=== PATIENT | female | born 1960 | race Caucasian/White ===

== ENCOUNTER → 2018-03-04 | Outpatient (CLI) | payer BC | LOC: M WUC 15:58 | DX: M16.12 Unilateral primary osteoarthritis, left hip (principal); C50.919 Malignant neoplasm of unspecified site of unspecified female breast | CPT/HCPCS: 73502 ==

== ENCOUNTER → 2018-05-11 | Outpatient (REF) | payer BC ==
[2018-05-11 12:44] LABS: OSMOLALITY SERUM 299 MOSM/KG (275-295)
== END ==
LOC: M SFHCPLAZ 10:26
DX: K52.9 Noninfective gastroenteritis and colitis, unspecified (principal)
CPT/HCPCS: 83930

== ENCOUNTER → 2018-05-16 | Outpatient (REF) | payer BC | LOC: M LAB REF 15:09 | DX: K52.9 Noninfective gastroenteritis and colitis, unspecified (principal) | CPT/HCPCS: 87507 ==

== ENCOUNTER → 2018-06-04 | Outpatient (REF) | payer BC ==
[2018-06-04 13:39] LABS: FERRITIN 21 NG/ML (8-252); IRON (FE) 59 UG/DL (50-170); PERCENT SATURATION 15.9 % (13.2-45.0); TOTAL IRON BINDING CAPACITY 371 UG/DL (250-450)
== END ==
LOC: M LAB REF 13:01
DX: C79.51 Secondary malignant neoplasm of bone (principal); C50.911 Malignant neoplasm of unspecified site of right female breast; Z79.818 Long term (current) use of other agents affecting estrogen receptors and estrogen levels

== ENCOUNTER 2019-07-28 08:59 | Emergency (ER) | payer BC ==
[~2019-07-28] VITALS: Ht 157.5 cm; Wt 74.1 kg
[~2019-07-28 08:59] MED LIST: ASPI81TA26 PO; CALC600T60 PO; DULO1CAP5 PO; ENAL2.5T PO; FIBE625T PO; MELA3TAB49 PO; MULTCAP PO; QC F0.52 PO; SIMV20TA2 PO; SYNT75TA PO; TRAZ-252 PO
[2019-07-28] MEDS ORDERED: FULV250S IM (09:19)
[2019-07-28] MEDS ORDERED: XGEVINJ SC (09:20)
[2019-07-28] MEDS ORDERED: ISOVUE-370 76% 100ML VIAL (Q9967) As Ordered ONE (09:38)
[2019-07-28 10:12] LABS: CK-MB VALUE MASS 1.7 NG/ML (<3.6); CPK CREATINE PHOSPHOKINASE 122 U/L (26-192); LIPASE 118 U/L (73-393); MB/CK RELATIVE INDEX 1.39 (< OR =4); TROPONIN I < 0.02 NG/ML (< 0.10)
--- NOTE | 2019-07-28 10:58 | ECGEPIP ---
[facility] - ED Test Date: 2019-07-28 Pat Name: HEMALATHA BECKETT Department: Room: - Gender: Female Physician Coder: : [id number] Requested By: RITA Martinez Order Number: [id number] Reading MD: Hemalatha Reese Measurements Intervals [facility] Rate: 88 P: 39 NM: 152 QRS: -25 QRSD: 89 T: 33 QT: 367 QTc: 445 Interpretive Statements SINUS RHYTHM BORDERLINE LEFT AXIS DEVIATION NO PRIOR Electronically Signed on 07-28-2019 10:58:12 EDT by Hemalatha Reese
--- NOTE | 2019-07-28 11:27 | REP ---
CT ABDOMEN AND PELVIS WITH IV CONTRAST: TECHNIQUE: Axial contrast enhanced images from the lung bases to the pubic symphysis using 100 mL Isovue 370 intravenous contrast material with multiplanar reformations. Visualized lung bases demonstrate no infiltrate. There is a large hiatal hernia. There is a right breast implant. The liver, spleen, adrenals, pancreas and kidneys appear unremarkable. There is no hydronephrosis. There is no abdominal aortic aneurysm. There is no adenopathy. There is no free air or free fluid. No definite bowel wall thickening is seen. There is a left hip prosthesis which causes adjacent beam hardening artifact limiting evaluation of inferior pelvic structures. Urinary bladder is not well visualized. There appear to be old pelvic fractures on the left. Specifically, there appear to be old fractures of the left pubic rami, the right pubis, left acetabulum and possibly the medial superior left iliac bone. There are degenerative changes of the spine. IMPRESSION: No free air or free fluid. No definite acute abnormality. Large hiatal hernia. Electronically Signed by Quan Bailey MD 07/29/2019 09:17 A
[2019-07-28] MEDS ORDERED: KETO10TAB PO (12:37)
[2019-07-28] MEDS ORDERED: KETOROLAC 30 MG/ML VIAL (J1885) IV ONE (12:45)
[2019-07-28 12:46] VITALS: BP 149/78
== END 2019-07-28 13:50 | disposition home or self-care (01) ==
LOC: M ED 08:59
DX: R10.9 Unspecified abdominal pain (principal); K59.00 Constipation, unspecified; E78.49 Other hyperlipidemia; E03.9 Hypothyroidism, unspecified; K21.9 Gastro-esophageal reflux disease without esophagitis; F32.9 Major depressive disorder, single episode, unspecified; Z88.2 Allergy status to sulfonamides; Z88.0 Allergy status to penicillin; Z88.8 Allergy status to other drugs, medicaments and biological substances
CPT/HCPCS: 74177; 81001; 82550; 82553; 83690; 84484; 93005; 96374; 99284; J1885; Q9967

== ENCOUNTER → 2019-08-01 | Outpatient (CLI) | payer BC ==
[~2019-08-01] MED LIST changes: +FULV250S IM; +KETO10TAB PO; +XGEVINJ SC
--- NOTE | 2019-08-02 08:20 | REP ---
Clinical: Abdominal and epigastric pain. Technique: Real time boone scale ultrasound examination using curved array transducer. Findings: Liver and pancreas are normal in contour, size, echogenicity without focal hepatic or pancreatic lesion identified. The gallbladder is normal and without gallstones, wall thickening, or pericholecystic fluid. No biliary ductal dilatation is appreciated and the common bile duct measures 3.7 mm diameter. Right kidney is normal in reniform shape without hydronephrosis and measures 8.0 x 3.4 x 3.0 cm. No ascites in the visualized right upper quadrant. Impression: Normal limited abdominal ultrasound. Electronically Signed by Naveed Kim MD 08/02/2019 08:11 A
== END ==
LOC: M RAD 07:32
PROVIDERS: ATTEND Family Medicine
DX: R10.13 Epigastric pain (principal)

== ENCOUNTER 2021-07-19 05:00 | Inpatient (IN) | payer BC ==
[~2021-07-19] VITALS: Ht 157.5 cm; Wt 70.0 kg
[~2021-07-19 05:00] MED LIST changes: +BACI1CAP4 PO; +COVI100V IM; +ENAL1TAB46 PO; -ENAL2.5T PO; +MULT-90 PO; +OMEP-221 PO; -SIMV20TA2 PO; +SIMV20TA22 PO; +VITA1CAP25 PO
[2021-07-19 06:30] LABS: BASO % 0.2 % (0.0-1.0); EOS % 0.5 % (0.0-3.0); HEMATOCRIT 43.1 % (36.0-47.0); HEMOGLOBIN 13.8 g/dl (12.0-15.5); LYMPH # 1.7 10^3/uL (1.5-5.0); LYMPH % 20.1 % (24.0-44.0); MEAN CORPUSCULAR HEMOGLOBIN 24.5 pg (27.0-33.0); MEAN CORPUSCULAR VOLUME 76.4 fl (80.0-96.0); MONO # 0.8 10^3/uL (0.0-0.8); MONO % 9.5 % (2.0-8.0); NEUTROPHILS # 5.7 10^3/uL (1.5-8.5); NEUTROPHILS % 69.2 % (36.0-66.0); PLATELET COUNT, AUTOMATED 265 10^3/uL (150-450); RED BLOOD COUNT 5.64 10^6/uL (4.00-5.40); WHITE BLOOD COUNT 8.3 10^3/uL (4.0-10.0)
[2021-07-19] MEDS ORDERED: FAMOTIDINE IV BAG 20 MG in IV 1 EA IV ONE (06:40)
[2021-07-19] MEDS ORDERED: GI COCKTAIL 50ML BTL(HYOSCYAMINE/MAALOX/LIDOCAINE VISCOUS)(1:3:1) PO ONE (06:40)
[2021-07-19] MEDS ORDERED: PANTOPRAZOLE 40MG VIAL (C9113 PER 1) IV ONE (06:40)
[2021-07-19] MEDS ORDERED: ONDANSETRON 4MG/2ML VIAL IV ONE (06:40)
[2021-07-19] MEDS ORDERED: NS 1,000 ML IV ONE (06:40)
[2021-07-19] MEDS ORDERED: MORPHINE 4 MG/ML 1ML VIAL/SYRINGE (J2270) IV ONE ×2 (06:40→09:05)
[2021-07-19] MEDS ORDERED: SUCRALFATE 1 GM TAB PO ONE (06:40)
[2021-07-19] MEDS ORDERED: SUCR1TAB56 PO (06:49)
[2021-07-19 07:20] LABS: ALT/SGPT 29 U/L (12-78); BILIRUBIN,DIRECT < 0.1 MG/DL (0.0-0.2); BILIRUBIN,TOTAL 0.5 MG/DL (0.2-1.0); BLOOD UREA NITROGEN 22 MG/DL (7-18); CALCIUM LEVEL 10.5 MG/DL (8.8-10.2); CARBON DIOXIDE LEVEL 32 MEQ/L (21-32); CHLORIDE LEVEL 101 MEQ/L (98-107); CREATININE FOR GFR 1.23 MG/DL (0.55-1.30); FERRITIN 310 NG/ML (8-252); GLOMERULAR FILTRATION RATE 47.1 (>45); GLUCOSE, FASTING 125 MG/DL (70-100); IRON (FE) 54 UG/DL (50-170); LIPASE 249 U/L (73-393); PERCENT SATURATION 15.9 % (13.2-45.0); POTASSIUM SERUM 3.8 MEQ/L (3.5-5.1); SODIUM LEVEL 143 MEQ/L (136-145); TOTAL IRON BINDING CAPACITY 340 UG/DL (250-450); TOTAL PROTEIN 7.6 GM/DL (6.4-8.2)
[2021-07-19] MEDS: GASTROGRAFIN SOLUTION 30ML PO SCH ×2 (07:49→09:27)
[2021-07-19 08:02] LABS: INR 0.97; PROTHROMBIN TIME 13.3 SECONDS (12.7-14.5)
[2021-07-19 08:03] LABS: PARTIAL THROMBOPLASTIN TIME 29.5 SECONDS (25.9-37.0)
--- NOTE | 2021-07-19 08:28 | REP ---
INDICATION: r/o free air, poss perf duodenal ulcer COMPARISON: None. TECHNIQUE: Upright view of the chest with supine and upright views of the abdomen and pelvis. FINDINGS: Frontal upright view of the chest demonstrates no acute cardiopulmonary process or free air below the diaphragm to suspect pneumoperitoneum. Supine and upright views of the abdomen and pelvis demonstrate nonspecific bowel gas pattern without obstruction or perforation. No organomegaly. No significant abnormal calcifications. Skeletal structures normal for age. IMPRESSION: Nonspecific bowel gas pattern. No evidence for pneumoperitoneum. <Electronically signed by Naveed Kim > 07/19/21 [id number]
[2021-07-19] MEDS ORDERED: METOCLOPRAMIDE INJ 10MG/2ML VIAL (J2765 PER 1) IV ONE (08:30)
[2021-07-19] MEDS ORDERED: ISOVUE-370 76% 100ML VIAL As Ordered ONE (09:15)
--- NOTE | 2021-07-19 10:39 | REP ---
INDICATION: coffee ground emesis, NV, abd pain. Patient has a history of breast carcinoma. COMPARISON: Comparison CT study July 28, 2019. TECHNIQUE: Helical scanning is acquired following the intravenous injection of 100 mL of Isovue 370. Coronal and sagittal MPR images are provided along with reformatted axial 3 mm slices. Oral contrast was also administered. FINDINGS: Digital lead caregiver radiograph demonstrates mottled mixed sclerotic density in the pelvis in several sites unchanged from the 2019 study and compatible with metastatic skeletal disease. The left hip is replaced. Bowel gas pattern is normal. On lung window settings, the lung bases are clear. There is no evidence of pleural effusion. A right breast augmentation implant is visible. No focal hepatic or splenic lesion is seen. There is mild mural thickening in the distal esophagus and the esophagus contains some orally ingested contrast suggesting reflux. The stomach is moderately to markedly distended filled with fluid and some air. The duodenal bulb and the lumen of the duodenum are labeled. No obstructive lesion is appreciated. No gastric mass lesion is observed. Small bowel lumen is labeled with oral contrast as well. No obstructive lesion is seen. There is sigmoid colon diverticulosis without CT evidence of diverticulitis. No abnormality is noted in the gallbladder. No mass or cyst is seen in the pancreas. The spleen is normal in size homogeneous in texture. The kidneys enhance symmetrically and are morphologically intact. Normal caliber aorta. A normal appendix is seen extending into the pelvis. Urinary bladder is unremarkable. There is some spray artifact on the the lower pelvis from the hip arthroplasty. Mixed lytic and sclerotic changes are again noted in the pelvis as described above and unchanged from the [address] study. No new bony destructive lesion is appreciated. IMPRESSION: Moderate to marked distension of the stomach without obstructive the lesion seen. Evidence of reflux question esophagitis. There is some fatty infiltration of the liver. There is left colonic diverticulosis. Stable bony lesions in the pelvis. Status post right mastectomy with augmentation implant. Left hip arthroplasty. <Electronically signed by Randy Larios > 07/19/21 [id number]
[2021-07-19] MEDS ORDERED: CHOL50002 PO (12:20)
[2021-07-19] MEDS ORDERED: QC F0.52 PO (12:20)
[2021-07-19] MEDS ORDERED: HOME MED LIST COMPLETE! XX SCH (12:25)
[2021-07-19] MEDS ORDERED: ACETAMINOPHEN TAB 650MG DOSE (2X325MG) PO PRN (12:45)
--- NOTE | 2021-07-19 13:48 | HPEPDOC ---
[facility] Medical History & Physical Date of Admission Jul 19, 2021 Date of Service: Jul 19, 2021 Primary Care Physician: ALEXANDRU LI MD Attending Physician: LAUREN ZAYAS DO History and Physical CHIEF COMPLAINT: Epigastric abdominal pain and vomiting HISTORY OF PRESENT ILLNESS: Patient is a 61-year-old female who presented to the emergency department today after worsening epigastric pain with vomiting. Patient states that she has been having worsening epigastric pain for the past few weeks and recent went to her primary care provider who started Carafate 3 times a day with PPI therapy. Patient continued to have issues after trying to advance her diet from the liquid diet that she was on. Patient's Carafate was increased to 4 times daily however, the patient had spells of vomiting over the past 2 or 3 days. Patient had multiple rounds of vomiting which ended up be coming brown liquid. Patient states that she felt little constipated and then took a laxative in order to help her have a bowel movement. Patient says she has had multiple bowel movements and says she feels "cleaned out". Patient was given Zofran and metoclopramide in the emergency department states she is feeling better at this time. Patient denies any bright red blood in her vomitus nor coffee-ground emesis. Patient does have a remote history of a duodenal ulcer. Patient also has a history of iron deficiency anemia. CT scan in the emergency department showed the patient has a possible gastric outlet obstruction. Patient is feeling otherwise well at this time stating that her abdominal pain is improved. PAST MEDICAL HISTORY: 1. Metastatic breast cancer. 2. Hyperlipidemia. 3. Depression. 4. Osteoarthritis left hip status post total hip replacement . Vitamin D deficiency 6. Chronic diarrhea 7. Insomnia 8. Hypothyroidism 9. Hiatal hernia 10. Chronic kidney disease stage II 11. Chronic anemia 12. GERD with history of duodenal ulcer 13. Bilateral carpal tunnel PAST SURGICAL HISTORY: 1. Modified radical mastectomy right breast 2. Port-A-Cath replacement and removal 3. Breast implants. 4. Breast implant expansion 5. Left breast reduction 6. Nipple reconstruction abdominoplasty 7. Right humerus fracture with pin placement 8. Right breast implant replacement 9. Bard port placed and removed 10. Hiatal hernia 11. Left hip replacement 12. EGD and colonoscopy SOCIAL HISTORY: Patient denies current smoking or alcohol use. Patient denies illicit drug use. FAMILY HISTORY: Father of dementia in mother is history of rheumatoid arthritis ALLERGIES: Please see below. REVIEW OF SYSTEMS: General: Patient denies fevers HEENT: Patient denies headaches Cardiovascular: Patient denies chest pain Respiratory: Patient denies shortness of breath, cough GI: Patient reports abdominal pain with nausea and vomiting as above : Patient denies increased frequency or pain with urination Extremities: Patient denies swelling or pain in extremities Neurological: Patient denies numbness or tingling in legs Skin: Patient denies any new rashes or lesions. Hematologic: Patient denies any easy bruising. Lymphatic: Patient denies any lumps lumps or bumps in neck, axilla, or groin HOME MEDICATIONS: Please see below. PHYSICAL EXAMINATION: VITAL SIGNS: Temperature 98.5, pulse 82, respiratory rate 18, blood pressure 140/83, pulse oximetry 92% on room air. General: Alert and oriented female patient was sitting up in bed when I walked in. Patient not appear to be in any acute distress. HEENT: Normocephalic, atraumatic, moist mucous membranes. Neck: No lymphadenopathy or thyromegaly Cardiac: Regular rate and rhythm, no murmurs, normal S1, normal S2 Pulm: Clear to auscultation bilaterally. No wheezes, rhonchi, rales Abd: Minimally distended, mild tenderness to palpation in the epigastric area, no rebound tenderness, mildly hyperactive bowel sounds Ext: No edema bilateral lower extremities Neuro: Patient was able to move all 4 extremities on command and reported equal sensation light touch in all 4 extremities. Skin: Skin of the head, neck, upper and lower extremities was examined did not show any evidence of rash or wounds. LABORATORY DATA: See below. IMAGING: CT scan of the abdomen and pelvis with IV and oral contrast from 910 1021 was reported to show moderate to marked distention of the stomach without obstructive lesion seen. Evidence of reflux question esophagitis. There is some fatty infiltration of the liver. There is left colonic diverticulosis. Stable bony lesion in the pelvis. Status post right mastectomy with augmentation implant. Left hip arthroplasty. Abdominal x-ray performed on 07/19/2021 is reported to show nonspecific bowel gas pattern. No evidence for pneumoperitoneum MICROBIOLOGY: Please see below. ASSESSMENT: Patient is a 61-year-old female who presented to the emergency department with increased epigastric pain and multiple rounds of vomiting was found to have a markedly distended stomach.. . PLAN: 1. Gastric distention, possible gastric outlet obstruction. CT scan showed that the patient had gastric distention but stated there was no obstructive lesion seen. Patient has been on PPI and Carafate. Patient has failed these treatments. I did speak with programmer business Dr. Echavarria who stated that the patient would benefit from an upper endoscopy. Patient will be held n.p.o. and upper endoscopy will be performed. After an upper endoscopy is performed, we can advance the patient's diet as tolerated. Patient does not appear to need NG tube at this time however, if she becomes more distended, this may be necessary. 2. Nausea and vomiting. Patient will be placed on metoclopramide and/or Zofran for nausea control at this time. Patient feels well with these medications when I evaluated in the emergency department. 3. Epigastric abdominal pain. This is most likely secondary to the patient's gastric distention. Patient does have a history of a duodenal ulcer which could be the cause of this. Patient will have upper endoscopy as above. 4. Hyperlipidemia. Continue patient's on medications. 5. Hypothyroidism. Continue patient's home medications. 6. DVT prophylaxis teds and sequentials pending EGD 7. CODE STATUS: Full code Disposition: Patient be admitted to medical surgical floor for further monitoring and treatment. I do expect the patient to be discharged after greater than or equal to 2 midnight stay. Vital Signs Vital Signs Date Time Temp Pulse Resp B/P (MAP) Pulse Ox O2 Delivery O2 Flow Rate FiO2 07/19/21 12:00 82 18 92 Room Air 07/19/21 11:45 140/83 (102) 07/19/21 05:00 98.5 Laboratory Data Labs 24H Laboratory Tests 2 07/19/21 06:11: Immature Granulocyte % (Auto) 0.5, Neutrophils (%) (Auto) 69.2H, Lymphocytes (%) (Auto) 20.1L, Monocytes (%) (Auto) 9.5H, Eosinophils (%) (Auto) 0.5, Basophils (%) (Auto) 0.2, Neutrophils # (Auto) 5.7, Lymphocytes # (Auto) 1.7, Monocytes # (Auto) 0.8, Eosinophils # (Auto) 0.0, Basophils # (Auto) 0.0, Nucleated Red Blood Cells % (auto) 0.0, Anion Gap 10, Glomerular Filtration Rate 47.1, Calcium Level 10.5H, Iron Level 54, Total Iron Binding Capacity 340, Transferrin % S aturation 15.9, Ferritin 310H, Total Bilirubin 0.5, Direct Bilirubin < 0.1, Aspartate Amino Transf (AST/SGOT) 37, Alanine Aminotransferase (ALT/SGPT) 29, Alkaline Phosphatase 52, Total Protein 7.6, Albumin 4.0, Albumin/Globulin Ratio 1.1L, Lipase 249 07/19/21 06:36: Prothrombin Time 13.3, Prothromb Time International Ratio 0.97, Activated Partial Thromboplast Time 29.5 CBC/BMP Laboratory Tests 07/19/21 06:11 Home Medications Scheduled Bacillus Coagulans/Inulin (Probiotic Formula Capsule) 1 Each Capsule, 1 CAP PO DAILY Calcium Carbonate (Calcium) 600 Mg Tab, 600 MG PO BID Cholecalciferol (Vitamin D3) (Vitamin D3) 125 Mcg Capsule, 125 MCG PO DAILY Denosumab Injection (Xgeva) 120 Mg/1.7 Ml Vial, 120 MG SC MTHLY Duloxetine Hcl (Duloxetine HCl) 30 Mg Cap, 30 MG PO DAILY Enalapril Maleate (Enalapril Maleate) 2.5 Mg Tab, 2.5 MG PO DAILY Fulvestrant (Faslodex) 250 Mg/5 Ml Syringe, 500 MG IM MTHLY Levothyroxine Sodium (Synthroid) 75 Mcg Tab, 75 MCG PO DAILY Melatonin (Melatonin) 3 Mg Tab.rapdis, 3 MG PO QPM for sleep Multivitamin (Multivitamin) 1 Each Tablet, 1 TAB PO DAILY Omeprazole (Omeprazole) 40 Mg Capsule.dr, 40 MG PO DAILY Psyllium Husk (Fiber) 0.52 Gm Capsule, 2 CAP PO QAM Psyllium Husk (Fiber) 0.52 Gm Capsule, 2 CAP PO QHS Simvastatin (Simvastatin) 20 Mg Tab, 20 MG PO QPM Sucralfate (Sucralfate) 1 Gm Tablet, 1 GM PO ACHS Trazodone HCl (Trazodone HCl) 50 Mg Tab, 25 MG PO QPM Allergies Coded Allergies: Sulfa (Sulfonamide Antibiotics) (Verified Allergy, Unknown, 07/19/21) amoxicillin (Verified Allergy, Unknown, 07/19/21) ciprofloxacin (Verified Allergy, Unknown, 07/19/21) meperidine (Verified Allergy, Unknown, 07/19/21) A-FIB/CHADSVASC A-FIB History Current/History of A-Fib/PAF?: No LAUREN ZAYAS DO Jul 19, 2021 13:47
[2021-07-19] MEDS: DULoxetine 30MG CAPSULE (CYMBALTA) PO SCH (14:04)
[2021-07-19] MEDS: LEVOTHYROXINE 75MCG TABLET (0.075MG) PO SCH (14:04)
[2021-07-19] MEDS: SUCRALFATE 1 GM TAB PO SCH ×3 (14:04→21:15)
[2021-07-19] MEDS: LR 1,000 ML IV SCH ×2 (14:05→20:48)
[2021-07-19 14:06] LABS: RSV AMPLIFICATION NEGATIVE (NEGATIVE)
[2021-07-19] MEDS ORDERED: LIDOCAINE 2% 100MG/5ML SDV (FOR ANES.) As Ordered ONE (14:55)
[2021-07-19] MEDS ORDERED: propofoL 200 MG/20 ML VIAL As Ordered ONE (14:55)
[2021-07-19] MEDS ORDERED: fentaNYL 100 MCG/2 ML INJECTION (J3010) As Ordered ONE (14:55)
[2021-07-19 16:30] VITALS: BP 159/88
--- NOTE | 2021-07-19 16:34 | CR.PDOC ---
General Date of Consultation: Jul 19, 2021 Consultation REASON FOR CONSULTATION/CHIEF COMPLAINT: [Nausea, vomiting, r/o gastric outlet obstruction]. HISTORY OF PRESENT ILLNESS: . 61 yo female with a history of Duodenal ulcer found on an EGD in [facility] in 2018. She has been on Omeprazole 40 mg daily ever since. she had a prior episode of nausea, which responded well to a course of carafate. For the past year she has not had GI symptoms. Her GERD is well controlled. For past 5-6 days she has had recurrence of epigastric pain and vomiting spells. vomitus contains food and coffee ground material. her pain intensifided and was prescribed carafate for past 3 days along with her baseline dose of Omeprazole. She was admitted to ER for abdominal pain and vomiting. CT A/P shows large pool of contrast in stomach c/w GOO, but no obvious causative lesion. ALLERGIES: Please see below. HOME MEDICATIONS: Please see below. PAST MEDICAL HISTORY: 1. GERD 2. Duodenal ulcer ([place] 2017). (has been on PPI continuously since 2018) 3. Metastatic breast cancer. 4. Osteoarthritis left hip status post total hip replacement 5. Hypothyroidism. PAST SURGICAL HISTORY: 1. EGD and colonoscopy ([place]) 2. Modified radical mastectomy right breast 3. Port-A-Cath 4. Breast implants. 5. Right humerus fracture with pin placement 6. 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 HEENT: [neg]. CARDIOVASCULAR: [neg]. RESPIRATORY: [neg]. GENITOURINARY: [neg]. MUSCULOSKELETAL: [neg]. GASTROINTESTINAL: [neg]. SKIN: [neg]. NEUROLOGICAL: [neg]. PSYCHIATRIC: [depression/neg]. ENDOCRINE: [hypothyroid/neg]. PHYSICAL EXAMINATION: VITAL SIGNS: Please see below. GENERAL APPEARANCE: AAOx3, Nontoxic, comfortably in bed HEENT: Not jaundiced, pink/moist RESPIRATORY: Clear b/l CARDIOVASCULAR: RRR, neg for M ABDOMEN:Soft, mild/mod tender epigastrium, positive splash. EXTREMITIES: Neg for edema. NEUROLOGICAL: AAOx3, moves all extremities equally/bilaterally. PSYCHIATRIC: [Neg]. LABORATORY DATA: Please see below. ASSESSMENT/PLAN: 1. Gastric outlet obstruction, Vomiting, epigastric pain Hx DU 2018 (has been on PPI ever since), Hx metastatic Breast CA Plan: 1) NGT placed in GI lab for decompression before planned EGD today. 2) EGD to assess for obstructive process (vs gastroparesis--doubt). Noted is the fact that her sx failed rodent exterminator treatment with PPI. ADD: EGD Results: (See report for details) A nearly completely obstructing, circumferential, ulcerated mass in first/second portion of the duodenum. (scope will not pass)--Biopsied (Moderate partially digested food material in stomach along with coffee ground material. partial removal accomplished) Vital Signs/I&O Vital Signs Date Time Temp Pulse Resp B/P (MAP) Pulse Ox O2 Delivery O2 Flow Rate FiO2 07/19/21 15:01 98.7 85 20 130/80 (97) 95 Room Air Laboratory Data Labs 24H Laboratory Tests 2 07/19/21 06:11: Immature Granulocyte % (Auto) 0.5, Neutrophils (%) (Auto) 69.2H, Lymphocytes (%) (Auto) 20.1L, Monocytes (%) (Auto) 9.5H, Eosinophils (%) (Auto) 0.5, Basophils (%) (Auto) 0.2, Neutrophils # (Auto) 5.7, Lymphocytes # (Auto) 1.7, Monocytes # (Auto) 0.8, Eosinophils # (Auto) 0.0, Basophils # (Auto) 0.0, Nucleated Red Blood Cells % (auto) 0.0, Anion Gap 10, Glomerular Filtration Rate 47.1, Calcium Level 10.5H, Iron Level 54, Total Iron Binding Capacity 340, Transferrin % Saturation 15.9, Ferritin 310H, Total Bilirubin 0.5, Direct Bilirubin < 0.1, Aspartate Amino Transf (AST/SGOT) 37, Alanine Aminotransferase (ALT/SGPT) 29, Alkaline Phosphatase 52, Total Protein 7.6, Albumin 4.0, Albumin/Globulin Ratio 1.1L, Lipase 249 07/19/21 06:36: Prothrombin Time 13.3, Prothromb Time International Ratio 0.97, Activated Partial Thromboplast Time 29.5 07/19/21 12:32: Coronavirus (COVID-19)(PCR) NEGATIVE, Influenza Type A (RT-PCR) NEGATIVE, Influenza Type B (RT-PCR) NEGATIVE, Respiratory Syncytial Virus (PCR) NEGATIVE CBC/BMP Laboratory Tests 07/19/21 06:11 Allergies Coded Allergies: Sulfa (Sulfonamide Antibiotics) (Verified Allergy, Unknown, 07/19/21) amoxicillin (Verified Allergy, Unknown, 07/19/21) ciprofloxacin (Verified Allergy, Unknown, 07/19/21) meperidine (Verified Allergy, Unknown, 07/19/21) Home Medications Scheduled Bacillus Coagulans/Inulin (Probiotic Formula Capsule) 1 Each Capsule, 1 CAP PO DAILY, (Reported) Calcium Carbonate (Calcium) 600 Mg Tab, 600 MG PO BID, (Reported) Cholecalciferol (Vitamin D3) (Vitamin D3) 125 Mcg Capsule, 125 MCG PO DAILY, (Re ported) Denosumab Injection (Xgeva) 120 Mg/1.7 Ml Vial, 120 MG SC MTHLY, (Reported) Duloxetine Hcl (Duloxetine HCl) 30 Mg Cap, 30 MG PO DAILY, (Reported) Enalapril Maleate (Enalapril Maleate) 2.5 Mg Tab, 2.5 MG PO DAILY, (Reported) Fulvestrant (Faslodex) 250 Mg/5 Ml Syringe, 500 MG IM MTHLY, (Reported) Levothyroxine Sodium (Synthroid) 75 Mcg Tab, 75 MCG PO DAILY, (Reported) Melatonin (Melatonin) 3 Mg Tab.rapdis, 3 MG PO QPM for sleep, (Reported) Multivitamin (Multivitamin) 1 Each Tablet, 1 TAB PO DAILY, (Reported) Omeprazole (Omeprazole) 40 Mg Capsule.dr, 40 MG PO DAILY, (Reported) Psyllium Husk (Fiber) 0.52 Gm Capsule, 2 CAP PO QAM, (Reported) Psyllium Husk (Fiber) 0.52 Gm Capsule, 2 CAP PO QHS, (Reported) Simvastatin (Simvastatin) 20 Mg Tab, 20 MG PO QPM, (Reported) Sucralfate (Sucralfate) 1 Gm Tablet, 1 GM PO ACHS, (Reported) Trazodone HCl (Trazodone HCl) 50 Mg Tab, 25 MG PO QPM, (Reported) RITA PIPER MD Jul 19, 2021 16:34
--- NOTE | 2021-07-19 16:58 | ROOR ---
Patient Name: Hemalatha Lui Procedure Date: 07/19/2021 3:37 PM Date of : 1960 Age: 61 Room: [facility] Gender: Female Note Status: Finalized Procedure: Upper GI endoscopy Indications: Suspected gastric outlet obstruction Providers: Wei Echavarria MD Referring MD: 2. Inpatient 2. Inpatient, Denice Sin MD Requesting Provider: Medicines: Monitored Anesthesia Care Complications: No immediate complications. Procedure: Pre-Anesthesia Assessment: - The heart rate, respiratory rate, oxygen saturations, blood pressure, adequacy of pulmonary ventilation, and response to care were monitored throughout the procedure. The Endoscope was introduced through the mouth, and advanced to the duodenal bulb. The upper GI endoscopy was accomplished without difficulty. The patient tolerated the procedure well. Findings: A moderate to large frond-like/villous circumferential ulcerated mass with no bleeding was found in the first/second portion of the duodenum. The lesion obsructs lumen, I am not able to pass scope. Biopsies were taken with a cold forceps for histology. A medium amount of food residue and coffee ground type material as found in the gastric body. (incomplete clearance). Visualisation is a bit limited, but no other gastric abnormalities seen. The examined esophagus was normal. Impression: - Rule out malignancy: An ulcerated, circumferential, at least partially obstructing mass between 1st & 2nd portions of the duodenum. (scope will not pass). Biopsied. - A medium amount of food (residue) in the stomach. - Normal esophagus. Recommendation: - Rec: consult surgery. - Await pathology results. - Trial on clear liquid diet. - Replace NGT for vomiting - Continue PPI. Procedure Code(s): --- Professional --- 84227, Esophagogastroduodenoscopy, flexible, transoral; with biopsy, single or multiple Diagnosis Code(s): --- Professional --- K31.89, Other diseases of stomach and duodenum CPT copyright 2019 [employer]. All rights reserved. The codes documented in this report are preliminary and upon toddler teacher review may be revised to meet current compliance requirements. Wei Echavarria MD Wei Echavarria MD 07/19/2021 4:57:52 PM Electronically signed by Wei Echavarria MD Number of Addenda: 0 Note Initiated On: 07/19/2021 3:37 PM Estimated Blood Loss: Estimated blood loss: none.
[2021-07-19] MEDS: SIMVASTATIN 20 MG TAB PO SCH (21:15)
[2021-07-19] MEDS: traZODone 25MG PER 1/2 TABLET PO SCH (21:15)
[2021-07-19 22:00] VITALS: BP 135/66
[2021-07-20] MEDS: LEVOTHYROXINE 75MCG TABLET (0.075MG) PO SCH (05:47)
[2021-07-20 06:00] VITALS: BP 132/70
[2021-07-20 08:33] LABS: HEMATOCRIT 31.9 % (36.0-47.0); MEAN CORPUSCULAR HEMOGLOBIN 25.2 pg (27.0-33.0); MEAN CORPUSCULAR VOLUME 78.8 fl (80.0-96.0); PLATELET COUNT, AUTOMATED 157 10^3/uL (150-450); RED BLOOD COUNT 4.05 10^6/uL (4.00-5.40); WHITE BLOOD COUNT 4.4 10^3/uL (4.0-10.0)
[2021-07-20 08:36] LABS: HEMOGLOBIN 10.2 g/dl (12.0-15.5)
[2021-07-20 08:41] LABS: BLOOD UREA NITROGEN 14 MG/DL (7-18); CALCIUM LEVEL 7.9 MG/DL (8.8-10.2); CARBON DIOXIDE LEVEL 28 MEQ/L (21-32); CHLORIDE LEVEL 106 MEQ/L (98-107); CREATININE FOR GFR 0.94 MG/DL (0.55-1.30); GLOMERULAR FILTRATION RATE > 60.0 (>45); GLUCOSE, FASTING 85 MG/DL (70-100); MAGNESIUM LEVEL 1.8 MG/DL (1.8-2.4); POTASSIUM SERUM 3.8 MEQ/L (3.5-5.1); SODIUM LEVEL 140 MEQ/L (136-145)
[2021-07-20] MEDS: DULoxetine 30MG CAPSULE (CYMBALTA) PO SCH (08:58)
[2021-07-20] MEDS: SUCRALFATE 1 GM TAB PO SCH (08:58)
[2021-07-20] MEDS: SUCRALFATE SUSP 1GM/10ML UD PO SCH ×3 (13:05→20:26)
[2021-07-20 14:00] VITALS: BP 133/77
--- NOTE | 2021-07-20 14:51 | IPNPDOC ---
Text Note Date of Service The patient was seen on 07/20/21. NOTE Subjective: Patient is a 61-year-old female presented to hospital yesterday with worsening abdominal pain with nausea and vomiting. Patient was taken down for an EGD yesterday and was found to have an ulcerated mass that is in the first and second part of the duodenum which is caused in an obstruction and they were unable to pass the scope past this. Patient was placed back on a clear liquid diet has been tolerating this. Patient is otherwise feeling well. Patient has not vomited since her stomach was decompressed with NG tube. Patient says the abdominal pain is also better. Review of systems: General: Patient denies fevers HEENT: Patient denies headaches Cardiovascular: Patient denies chest pain Respiratory: Patient denies shortness of breath, cough GI: Patient denies abdominal pain, nausea, vomiting, diarrhea : Patient denies increased frequency or pain with urination Extremities: Patient denies swelling or pain in extremities Neurological: Patient denies numbness or tingling in legs Physical exam: Vitals: See below General: Alert and oriented female patient who sitting bedside chair and walked in. Patient not appear to be in any acute distress. HEENT: Normocephalic, atraumatic, moist mucous membranes. Neck: No lymphadenopathy or thyromegaly Cardiac: Regular rate and rhythm, no murmurs, normal S1, normal S2 Pulm: Clear to auscultation bilaterally. No wheezes, rhonchi, rales Abd: Nondistended, nontender to palpation, normal bowel sounds Ext: No edema bilateral lower extremities Labs: See below Imaging: No new imaging has been performed Assessment/plan: 61-year-old female present to the emergency department increased epigastric pain with multiple rounds of vomiting was found to have a markedly distended stomach 1. Gastric distention, gastric outlet obstruction. Patient was found to have an ulcerated mass that was causing a partial obstruction of the duodenum. Patient has been able to tolerate a clear liquid diet. I spoke with Dr. Hunt of gastroenterology who advised a full liquid diet. I spoke with surgery at our facility and since this mass is most likely a malignancy, patient will need to see an oncologic surgeon. If the patient is able to tolerate a full liquid diet without any difficulty, patient can be discharged on a full liquid diet with close follow-up with an oncologist for referral to oncologic surgeon. Patient is already established with oncology here in [place] as well as in [place] where she spends the rest of her year. Patient is in agreement with this plan and we will attempt to advance patient's diet. 2. Nausea and vomiting. This has resolved. As long as patient continues a liquid diet, I believe this will remain controlled. We will continue Carafate and Protonix. 3. Epigastric abdominal pain. Mostly secondary to gastric distention. Now the patient on liquid diet will have to continue to monitor. 4. Hyperlipidemia. Continue patient medications. 5. Hypothyroidism. Continue patient's medications. DVT Prophylaxis: Teds sequentials Disposition: Pending tolerating liquid diet. Possible discharge tomorrow VS,Fishbone, I+O VS, Fishbone, I+O Laboratory Tests 07/20/21 08:02 Vital Signs Date Time Temp Pulse Resp B/P (MAP) Pulse Ox O2 Delivery O2 Flow Rate FiO2 07/20/21 06:00 98.0 78 16 132/70 (90) 96 Room Air I&O- Last 24 Hours up to 6 AM 07/20/21 06:00 Intake Total 3110 ml Output Total 225 ml Balance 2885 ml LAUREN ZAYAS DO Jul 20, 2021 14:51
[2021-07-20] MEDS: traZODone 25MG PER 1/2 TABLET PO SCH (20:26)
[2021-07-20] MEDS: SIMVASTATIN 20 MG TAB PO SCH (20:26)
[2021-07-20 22:18] VITALS: BP 135/75
[2021-07-21 05:00] VITALS: BP 132/73
[2021-07-21] MEDS: LEVOTHYROXINE 75MCG TABLET (0.075MG) PO SCH (05:37)
[2021-07-21 06:47] LABS: HEMATOCRIT 34.9 % (36.0-47.0); HEMOGLOBIN 11.1 g/dl (12.0-15.5); MEAN CORPUSCULAR HEMOGLOBIN 24.9 pg (27.0-33.0); MEAN CORPUSCULAR HGB CONC 31.8 g/dl (32.0-36.5); MEAN CORPUSCULAR VOLUME 78.4 fl (80.0-96.0); PLATELET COUNT, AUTOMATED 169 10^3/uL (150-450); RED BLOOD COUNT 4.45 10^6/uL (4.00-5.40); WHITE BLOOD COUNT 4.7 10^3/uL (4.0-10.0)
[2021-07-21 07:12] LABS: BLOOD UREA NITROGEN 8 MG/DL (7-18); CALCIUM LEVEL 7.7 MG/DL (8.8-10.2); CARBON DIOXIDE LEVEL 29 MEQ/L (21-32); CHLORIDE LEVEL 108 MEQ/L (98-107); CREATININE FOR GFR 0.91 MG/DL (0.55-1.30); GLOMERULAR FILTRATION RATE > 60.0 (>45); GLUCOSE, FASTING 84 MG/DL (70-100); MAGNESIUM LEVEL 2.1 MG/DL (1.8-2.4); POTASSIUM SERUM 3.6 MEQ/L (3.5-5.1); SODIUM LEVEL 141 MEQ/L (136-145)
[2021-07-21] MEDS: SUCRALFATE SUSP 1GM/10ML UD PO SCH (07:45)
[2021-07-21] MEDS: DULoxetine 30MG CAPSULE (CYMBALTA) PO SCH (08:27)
[2021-07-21] MEDS ORDERED: PANTOPRAZOLE 40MG TAB (PROTONIX) PO ONE (08:45)
[2021-07-21] MEDS ORDERED: FLUBLOK(EGG FREE)(QUAD)INFLUENZA VACC 0.5ML SYRINGE 18YRS & OLDER IM ONE (10:00)
--- NOTE | 2021-07-21 12:03 | DS.PDOC ---
Discharge Summary General Date of Admission Jul 19, 2021 at 12:45 Date of Discharge 07/21/2021 Primary Care Physician: ALEXANDRU LI MD Attending Physician: LAUREN ZAYAS DO Specialist/Consultants Involve: RITA ECHAVARRIA MD Discharge Summary Please fax pathology results and discharge summary to Dr. Luis Manuel Laguerre. Fax number: [phone]. Address [facility], [facility]. [facility] [address] [place] [facility], [place] [address]. Phone number: [phone] PROCEDURES PERFORMED DURING STAY: EGD with biopsy performed on 07/19/[address] Rita Echavarria. ADMITTING DIAGNOSES: 1. Gastric distention with possible gastric outlet obstruction. 2. Nausea and vomiting 3. Epigastric abdominal pain 4. Hyperlipidemia 5. Hypothyroidism DISCHARGE DIAGNOSES: 1. Gastric outlet obstruction. 2. Ulcerated mass found in duodenum, pathology pending as of 07/21/2021 3. Nausea and vomiting, resolved 4. Epigastric abdominal pain, resolved 5. Hyperlipidemia 6. Hypothyroidism COMPLICATIONS/CHIEF COMPLAINT: Gastric Outlet Obstruction. HISTORY OF PRESENT ILLNESS: Patient is a 61-year-old female who presented to the emergency department today after worsening epigastric pain with vomiting. Patient states that she has been having worsening epigastric pain for the past few weeks and recent went to her primary care provider who started Carafate 3 times a day with PPI therapy. Patient continued to have issues after trying to advance her diet from the liquid diet that she was on. Patient's Carafate was increased to 4 times daily however, the patient had spells of vomiting over the past 2 or 3 days. Patient had multiple rounds of vomiting which ended up becoming brown liquid. Patient states that she felt little constipated and then took a laxative in order to help her have a bowel movement. Patient says she has had multiple bowel movements and says she feels "cleaned out". Patient was given Zofran and metoclopramide in the emergency department states she is feeling better at this time. Patient denies any bright red blood in her vomitus nor coffee-ground emesis. Patient does have a remote history of a duodenal ulcer. Patient also has a history of iron deficiency anemia. CT scan in the emergency department showed the patient has a possible gastric outlet obstruction. Patient is feeling otherwise well at this time stating that her abdominal pain is improved.. HOSPITAL COURSE: Patient was admitted and had an NG tube placed in the operating room prior to her EGD to decompress the stomach. EGD was performed on 07/19/2021 which found an ulcerated mass in the duodenum between the first and second parts. Dr. Echavarria of gastroenterology was unable to pass the scope past this. Patient had a biopsy taken of this and the pathology is pending. Patient was sent back to the floor on a clear liquid diet. Patient tolerated this well and was advanced to a full liquid diet. Patient tolerated this well into 07/21/2021. I did speak with our general surgeon on-call on 07/20/2021 who stated that the patient will most likely need an oncologic surgeon as the ulcerated mass is most likely a malignancy which Dr. Echavarria of gastroenterology is in agreement with. Because the patient is able to tolerate a liquid diet, the decision was made to discharge the patient with oncology follow-up. Patient is established with oncology in [place] with Dr. Luis Manuel Laguerre as well as here in [place], [place] with Dr. Ada Wick. Patient states that she if she is feeling well, she will try to go to [place] to have this done. I advised the patient that if she begins to feel like she is getting distended again and having issues with nausea and vomiting, she should return to the emergency department. Patient will continue with PPI therapy as well as Carafate therapy in order to avoid the mass becoming inflamed and causing acute obstruction. Patient will need follow-up within a week with hopeful follow-up with an oncologic surgeon soon thereafter. Patient has pathology pending and this will be faxed to both of her oncologist's once it is finalized. DISCHARGE MEDICATIONS: Please see below. ALLERGIES: Please see below. PHYSICAL EXAMINATION ON DISCHARGE: VITAL SIGNS: Please see below. General: Alert and oriented female patient who was sitting on the couch in her room when I walked in. Patient was able to walk without any difficulty to her bed and sit on the bed. Patient not appear to be in any acute distress. HEENT: Normocephalic, atraumatic, moist mucous membranes. Neck: No lymphadenopathy or thyromegaly Cardiac: Regular rate and rhythm, no murmurs, normal S1, normal S2 Pulm: Clear to auscultation bilaterally. No wheezes, rhonchi, rales Abd: Nondistended, minimal tenderness in the epigastric area to palpation, no rebound tenderness, normal bowel sounds Ext: No edema bilateral lower extremities LABORATORY DATA: Please see below. IMAGING: CT scan of the abdomen and pelvis with IV and oral contrast from was reported to show moderate to marked distention of the stomach without obstructive lesion seen. Evidence of reflux question esophagitis. There is some fatty infiltration of the liver. There is left colonic diverticulosis. Stable bony lesion in the pelvis. Status post right mastectomy with augmentation implant. Left hip arthroplasty. PROGNOSIS: Good ACTIVITY: [As tolerated]. DIET: Full liquid diet, be sure to drink Ensure or other liquid protein- containing drinks. Avoid fiber DISCHARGE PLAN: Discharge home DISPOSITION: 01 Home, Self-Care. DISCHARGE INSTRUCTIONS: 1. Follow-up with your primary care provider in 3 to 5 days discharge. 2. Follow-up with one of your oncologists this week in order to get referral for oncologic surgeon for definitive treatment for the ulcerated mass in the duodenum. 3. Continue a full liquid diet with Ensure or other liquid protein-containing drinks. Avoid high-fiber foods. 4. Return to the emergency department if your symptoms worsen ITEMS TO FOLLOWUP ON ON OUTPATIENT: 1. Pathology results of biopsy of ulcerated mass in duodenum. DISCHARGE CONDITION: [Stable]. TIME SPENT ON DISCHARGE: 35 minutes. Vital Signs/I&Os Vital Signs Date Time Temp Pulse Resp B/P (MAP) Pulse Ox O2 Delivery O2 Flow Rate FiO2 07/21/21 05:00 97.9 69 18 132/73 (92) 95 Room Air I&O- Last 24 Hours up to 6 AM 07/21/21 06:00 Intake Total 1373 ml Output Total 1850 ml Balance -477 ml Laboratory Data Labs 24H Laboratory Tests 2 07/21/21 06:29: Nucleated Red Blood Cells % (auto) 0.0, Anion Gap 4L, Glomerular Filtration Rate > 60.0, Calcium Level 7.7L, Magnesium Level 2.1 CBC/BMP Laboratory Tests 07/21/21 06:29 Discharge Medications Scheduled Bacillus Coagulans/Inulin (Probiotic Formula Capsule) 1 Each Capsule, 1 CAP PO DAILY, (Reported) Calcium Carbonate (Calcium) 600 Mg Tab, 600 MG PO BID, (Reported) Cholecalciferol (Vitamin D3) (Vitamin D3) 125 Mcg Capsule, 125 MCG PO DAILY, (Reported) Denosumab Injection (Xgeva) 120 Mg/1.7 Ml Vial, 120 MG SC MTHLY, (Reported) Duloxetine Hcl (Duloxetine HCl) 30 Mg Cap, 30 MG PO DAILY, (Reported) Enalapril Maleate (Enalapril Maleate) 2.5 Mg Tab, 2.5 MG PO DAILY, (Reported) Fulvestrant (Faslodex) 250 Mg/5 Ml Syringe, 500 MG IM MTHLY, (Reported) Levothyroxine Sodium (Synthroid) 75 Mcg Tab, 75 MCG PO DAILY, (Reported) Melatonin (Melatonin) 3 Mg Tab.rapdis, 3 MG PO QPM for sleep, (Reported) Omeprazole (Omeprazole) 40 Mg Capsule.dr, 40 MG PO DAILY, (Reported) Simvastatin (Simvastatin) 20 Mg Tab, 20 MG PO QPM, (Reported) Sucralfate (Sucralfate) 1 Gm Tablet, 1 GM PO ACHS, (Reported) Trazodone HCl (Trazodone HCl) 50 Mg Tab, 25 MG PO QPM, (Reported) Allergies Coded Allergies: Sulfa (Sulfonamide Antibiotics) (Verified Allergy, Unknown, 07/19/21) amoxicillin (Verified Allergy, Unknown, 07/19/21) ciprofloxacin (Verified Allergy, Unknown, 07/19/21) meperidine (Verified Allergy, Unknown, 07/19/21) LAUREN ZAYAS DO Jul 21, 2021 12:03
== END 2021-07-21 10:22 | disposition home or self-care (01) | DRG 240 ==
LOC: M ED 05:00 → M ED INP 12:45 → M MSPAV 16:24 → ENRESERV 16:27
PROVIDERS: ADMIT Family Medicine; ATTEND Family Medicine
PROC: 0DB98ZX Excision of Duodenum, Via Natural or Artificial Opening Endoscopic, Diagnostic (ICD-10-PCS; principal; 2021-07-19 13:30)
DX: C17.0 Malignant neoplasm of duodenum (principal); K31.1 Adult hypertrophic pyloric stenosis; E55.9 Vitamin D deficiency, unspecified; K21.9 Gastro-esophageal reflux disease without esophagitis; F32.9 Major depressive disorder, single episode, unspecified; E03.9 Hypothyroidism, unspecified; E78.5 Hyperlipidemia, unspecified; Z85.3 Personal history of malignant neoplasm of breast; K44.9 Diaphragmatic hernia without obstruction or gangrene; N18.2 Chronic kidney disease, stage 2 (mild); Z96.642 Presence of left artificial hip joint; Z79.899 Other long term (current) drug therapy; Z88.2 Allergy status to sulfonamides; Z88.0 Allergy status to penicillin; Z88.8 Allergy status to other drugs, medicaments and biological substances

== ENCOUNTER → 2022-04-28 | Outpatient (REF) | payer BC ==
[~2022-04-28] MED LIST changes: +CHOL50002 PO; +CREO24CA PO; -OMEP-221 PO; +OMEP40CA5 PO; +SUCR1TAB56 PO
[2022-04-28 14:36] LABS: ALBUMIN 3.4 GM/DL (3.2-5.2); BILIRUBIN,DIRECT 0.2 MG/DL (0.0-0.2); BILIRUBIN,TOTAL 0.6 MG/DL (0.2-1.0); CREATININE FOR GFR 1.05 MG/DL (0.55-1.30); GLOMERULAR FILTRATION RATE 56.5 (>45); TOTAL PROTEIN 6.4 GM/DL (6.4-8.2)
== END ==
LOC: M LAB REF 10:22
PROVIDERS: ATTEND Internal Medicine Gastroenterology
DX: C17.0 Malignant neoplasm of duodenum (principal)

== ENCOUNTER → 2022-04-30 | Outpatient (CLI) | payer BC ==
[~2022-04-30] MED LIST changes: +ISOVUE-370 76% 100ML VIAL As Ordered ONE
== END ==
LOC: M RAD 13:34
PROVIDERS: ATTEND Nurse Practitioner
DX: R91.8 Other nonspecific abnormal finding of lung field (principal); Z85.3 Personal history of malignant neoplasm of breast
CPT/HCPCS: 71260; Q9967

== ENCOUNTER → 2022-04-30 | Outpatient (CLI) | payer BC ==
[~2022-04-30] MED LIST changes: +GASTROGRAFIN SOLUTION 30ML (Q9963) As Ordered ONE; -ISOVUE-370 76% 100ML VIAL As Ordered ONE
== END ==
LOC: M RAD 13:32
PROVIDERS: ATTEND Internal Medicine Gastroenterology
DX: R63.4 Abnormal weight loss (principal); C17.0 Malignant neoplasm of duodenum; R94.5 Abnormal results of liver function studies
CPT/HCPCS: 74178; Q9963

== ENCOUNTER → 2022-07-18 | Outpatient (REF) | payer BC ==
[~2022-07-18] MED LIST changes: -GASTROGRAFIN SOLUTION 30ML (Q9963) As Ordered ONE
== END ==
LOC: M SFHCWAGY 15:11
PROVIDERS: ATTEND Specialist
DX: Z12.4 Encounter for screening for malignant neoplasm of cervix (principal); N95.2 Postmenopausal atrophic vaginitis
CPT/HCPCS: 87624; G0123

== ENCOUNTER → 2023-05-05 | Outpatient (REF) | payer BC ==
[~2023-05-05] MED LIST changes: +MIRA3350 PO; +ONDA8TAB8 PO
[2023-05-05 13:59] LABS: BASO % 0.3 % (0.0-1.0); EOS # 0.1 10^3/uL (0.0-0.5); EOS % 1.9 % (0.0-3.0); HEMATOCRIT 38.6 % (36.0-47.0); HEMOGLOBIN 12.3 g/dl (12.0-15.5); LYMPH # 1.6 10^3/uL (1.5-5.0); LYMPH % 22.3 % (24.0-44.0); MEAN CORPUSCULAR HGB CONC 31.9 g/dl (32.0-36.5); MEAN CORPUSCULAR VOLUME 81.6 fl (80.0-96.0); MONO # 0.7 10^3/uL (0.0-0.8); MONO % 9.9 % (2.0-8.0); NEUTROPHILS # 4.5 10^3/uL (1.5-8.5); NEUTROPHILS % 64.7 % (36.0-66.0); PLATELET COUNT, AUTOMATED 182 10^3/uL (150-450); RED BLOOD COUNT 4.73 10^6/uL (4.00-5.40)
[2023-05-05 14:08] LABS: INR 0.93; PROTHROMBIN TIME 12.7 SECONDS (12.5-14.5)
[2023-05-05 14:30] LABS: ALBUMIN 3.6 G/DL (3.2-5.2); ALKALINE PHOSPHATASE 141 U/L (46-116); ALT/SGPT 60 U/L (7.0-40); AST/SGOT 71 U/L (<34); BILIRUBIN,DIRECT 0.1 MG/DL (<0.4); BILIRUBIN,TOTAL 0.4 MG/DL (0.3-1.2); IRON (FE) 63 UG/DL (50-170); PERCENT SATURATION 17.7 % (13.2-45.0); TOTAL IRON BINDING CAPACITY 356 UG/DL (250-425); TOTAL PROTEIN 6.6 G/DL (5.7-8.2)
[2023-05-05 14:31] LABS: IMMUNOGLOBULIN A 150.8 MG/DL (40-350)
[2023-05-05 14:44] LABS: HEPATITIS B SURFACE ANTIGEN NEGATIVE (NEGATIVE)
[2023-05-05 15:05] LABS: HEPATITIS B CORE ANTIBODY IGM NEGATIVE (NEGATIVE)
[2023-05-05 15:06] LABS: HEPATITIS C VIRUS ABY INDEX 0.07 INDEX (<0.8)
[2023-05-07 16:08] LABS: ALPHA 1 ANTITRYPSIN 145 mg/dL (101-187); ANCA-ATYPICAL <1:20 titer (Neg:<1:20); ANTI-MITOCHONDRIAL ANTIBODY <20.0 Units (0.0-20.0); ANTINUCLEAR ANTIBODIES DIRECT Negative (Negative); CERULOPLASMIN 27.9 mg/dL (19.0-39.0); CYTOPLASMIC NEUTROP AB ANCA-C <1:20 titer (Neg:<1:20); LIVER-KIDNEY MICROSOMAL ABY <20.1 Units (0.0-20.0); PERINUCLEAR AB ANCA-P <1:20 titer (Neg:<1:20); TISSUE TRANSGLUTAMINASE IgA <2 U/mL (0-3)
== END ==
LOC: M LAB REF 13:16
PROVIDERS: ATTEND Internal Medicine Gastroenterology
DX: R94.5 Abnormal results of liver function studies (principal); C17.0 Malignant neoplasm of duodenum

== ENCOUNTER → 2023-06-02 | Outpatient (CLI) | payer BC ==
[~2023-06-02] MED LIST changes: +GASTROGRAFIN SOLUTION 30ML As Ordered ONE; +ISOVUE-370 76% 100ML VIAL As Ordered ONE
== END ==
LOC: M RAD 08:45
PROVIDERS: ATTEND Nurse Practitioner
DX: C50.919 Malignant neoplasm of unspecified site of unspecified female breast (principal)
CPT/HCPCS: 71260; 74177; Q9963; Q9967

== ENCOUNTER → 2023-07-21 | Outpatient (REF) | payer BC ==
[~2023-07-21] MED LIST changes: -GASTROGRAFIN SOLUTION 30ML As Ordered ONE; -ISOVUE-370 76% 100ML VIAL As Ordered ONE; +SUCR1TAB56
== END ==
LOC: M PLALAB 10:11
PROVIDERS: ATTEND Nurse Practitioner Family
DX: Z12.4 Encounter for screening for malignant neoplasm of cervix (principal)
CPT/HCPCS: 87624; G0123

== ENCOUNTER → 2024-03-16 | Outpatient (CLI) | payer BC ==
[~2024-03-16] MED LIST changes: +COQ1200C3 PO; +ENAL1TAB48; +GASTROGRAFIN SOLUTION 30ML As Ordered ONE; +ISOVUE-370 76% 100ML VIAL As Ordered ONE; +VITA100T98 PO
== END ==
LOC: M RAD 09:17
PROVIDERS: ATTEND Nurse Practitioner
DX: C17.0 Malignant neoplasm of duodenum (principal)
CPT/HCPCS: 71260; 74177; Q9963; Q9967

== ENCOUNTER → 2024-06-09 | Outpatient (REF) | payer MEDICARE, BC ==
[~2024-06-09] MED LIST changes: +FEXO60TA98 PO; -GASTROGRAFIN SOLUTION 30ML As Ordered ONE; +IRON27TA2 PO; -ISOVUE-370 76% 100ML VIAL As Ordered ONE; +ONDA-284 PO; -ONDA8TAB8 PO
[2024-06-09 11:26] LABS: BASO % 0.3 % (0.0-1.0); EOS # 0.1 10^3/uL (0.0-0.5); EOS % 1.3 % (0.0-3.0); HEMATOCRIT 40.4 % (36.0-47.0); HEMOGLOBIN 12.9 g/dl (12.0-15.5); LYMPH # 1.4 10^3/uL (1.5-5.0); LYMPH % 22.9 % (24.0-44.0); MEAN CORPUSCULAR HEMOGLOBIN 25.6 pg (27.0-33.0); MEAN CORPUSCULAR HGB CONC 31.9 g/dl (32.0-36.5); MEAN CORPUSCULAR VOLUME 80.2 fl (80.0-96.0); MONO # 0.6 10^3/uL (0.0-0.8); MONO % 10.1 % (2.0-8.0); NEUTROPHILS # 3.9 10^3/uL (1.5-8.5); NEUTROPHILS % 65.1 % (36.0-66.0); PLATELET COUNT, AUTOMATED 168 10^3/uL (150-450); RED BLOOD COUNT 5.04 10^6/uL (4.00-5.40)
[2024-06-09 12:21] LABS: ALBUMIN 3.6 G/DL (3.2-5.2); ALKALINE PHOSPHATASE 83 U/L (46-116); ALT/SGPT 35 U/L (7.0-40); AST/SGOT 38 U/L (<34); BILIRUBIN,TOTAL 0.4 MG/DL (0.3-1.2); BLOOD UREA NITROGEN 22 MG/DL (9-23); CALCIUM LEVEL 9.1 MG/DL (8.3-10.6); CARBON DIOXIDE LEVEL 28 MMOL/L (20-31); CHLORIDE LEVEL 108 MMOL/L (98-107); CREATININE FOR GFR 0.96 MG/DL (0.55-1.30); GLOMERULAR FILTRATION RATE > 60.0 (>45); GLUCOSE, FASTING 108 MG/DL (74-106); POTASSIUM SERUM 4.5 MMOL/L (3.5-5.1); SODIUM LEVEL 141 MMOL/L (136-145); TOTAL PROTEIN 6.8 G/DL (5.7-8.2)
== END ==
LOC: M LAB REF 11:12
PROVIDERS: ATTEND Internal Medicine Gastroenterology
DX: R94.5 Abnormal results of liver function studies (principal); Z15.09 Genetic susceptibility to other malignant neoplasm; K86.81 Exocrine pancreatic insufficiency

== ENCOUNTER → 2024-06-30 | Outpatient (CLI) | payer MEDICARE, BC ==
[~2024-06-30] MED LIST changes: +GASTROGRAFIN SOLUTION 30ML As Ordered ONE; +ISOVUE-370 76% 100ML VIAL As Ordered ONE; +LINZ290C
== END ==
LOC: M RAD 11:03
PROVIDERS: ATTEND Internal Medicine Hematology & Oncology
DX: C17.0 Malignant neoplasm of duodenum (principal)
CPT/HCPCS: 71260; 74177; Q9963; Q9967

== ENCOUNTER → 2024-07-21 | Outpatient (REF) | payer MEDICARE, BC ==
[~2024-07-21] MED LIST changes: -GASTROGRAFIN SOLUTION 30ML As Ordered ONE; -ISOVUE-370 76% 100ML VIAL As Ordered ONE
== END ==
LOC: M SFHCWAGY 13:34
PROVIDERS: ATTEND Nurse Practitioner Family
DX: Z12.4 Encounter for screening for malignant neoplasm of cervix (principal)
CPT/HCPCS: 87624; G0123